=== PATIENT | female | born 1960 | race Caucasian/White ===

== ENCOUNTER → 2021-11-06 11:59 | Outpatient (CLI) | payer BC, SELFPAY ==
--- NOTE | 2021-11-06 12:10 | XR_ITS ---
PROCEDURE: XR CHEST 2V CLINICAL HISTORY: DECREASED BREATH SOUNDS IN MIDDLE FIELD, ON RT SIDE OF CHEST COMPARISON: No exams were available for comparison FINDINGS: The cardiomediastinal silhouette and pulmonary vascularity are within normal limits. The lungs are clear without infiltrates, suspicious nodules, or pleural effusions. Left IJ MediPort catheter is present with the tip in the region the SVC. Status post bilateral mastectomy. IMPRESSION: No acute findings. 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 Dictated by: Ritchie Jones MD 11/06/2021 17:10 Ritchie Jones MD in [place] 11/06/2021 17:10
--- NOTE | 2021-11-06 12:31 | ECG_ITS ---
APPROVED REPORT Exam: Resting ECG HR:60 bpm ECG Measurements Heart Rate 60 AXES NH 158 P 39 QRSd 88 QRS 13 QT 420 T 31 QTc 420 Conclusion Normal sinus rhythm RSR' or QR pattern in V1 suggests right ventricular conduction delay Moderate voltage criteria for LVH, may be normal variant Borderline ECG Electronically signed by : Ramone Nash MD 11/06/2021 20:58:30
[2021-11-06 12:32] LABS: Basophils # 0.1 K/mm3 (0-0.2); Basophils % 0.6 % (0.1-2.0); Eosinophils # 0.2 K/mm3 (0.0-0.4); Eosinophils % 1.6 % (0.1-12.0); Lymphocytes # 1.7 K/mm3 (0.7-4.5); Lymphocytes % 17.6 % (10-50); Mean Corpuscular Volume 85.3 fl (81-99); Mean Platelet Volume 7.3 fl (7.4-10.4); Monocytes # 0.5 K/mm3 (0.1-1.0); Monocytes % 5.3 % (1.7-9.3); Neutrophils % 74.9 % (37.0-80.0); Platelet Count 324 K/mm3 (142-424); Red Blood Count 5.51 M/mm3 (4.20-5.40); Red Cell Distribution Width 14.1 % (11.5-17.5); White Blood Count 9.4 K/mm3 (4.8-10.8)
[2021-11-06 13:12] LABS: Chloride 102 mmol/L (98-107); Potassium 4.3 mmoL/L (3.5-5.1); Sodium 140 mmol/L (136-145)
[2021-11-06 13:15] LABS: Alanine Aminotransferase 26 U/L (12-78); Albumin Level 4.5 g/dl (3.5-5.0); Albumin/Globulin Ratio 1.7 (1.1-1.8); Alkaline Phosphatase 99 U/L (38-126); Anion Gap 12.3 mEq/L (5-15); Aspartate Amino Transferase 27 U/L (14-36); Bilirubin,Total 0.5 mg/dl (0.2-1.3); Blood Urea Nitrogen 10 mg/dl (7-17); Calcium 9.5 mg/dl (8.4-10.2); Carbon Dioxide 30 mmol/L (22.0-30.0); Estimated Glomerular Filt Rate 126 ml/min (>60); GFR (African American) 153 ML/MIN (>60); Globulin 2.6 g/dL (1.3-3.2); Glucose 100 mg/dl (74-100); Total Protein,Serum 7.1 g/dl (6.3-8.2)
[2021-11-06 13:24] LABS: NT Pro Brain Natriuretic Pep. 181 pg/mL (0-125)
== END ==
PROVIDERS: Visit Provider Nurse Practitioner
DX: R06.89 Other abnormalities of breathing (principal); I10 Essential (primary) hypertension
CPT/HCPCS: 36415; 71046; 80053; 83880; 84443; 85025; 93005

== ENCOUNTER 2024-10-19 14:30 | Emergency (ER) | payer BC, SELFPAY ==
--- NOTE | 2024-10-19 14:41 | XR_ITS ---
PROCEDURE INFORMATION: Exam: XR Left Knee Exam date and time: 10/19/2024 2:52 PM Age: 63 years old Clinical indication: Injury or trauma; Fall; Blunt trauma; Knee; Left TECHNIQUE: Imaging protocol: Radiologic exam of the left knee. Views: 3 views. Total images: 3 COMPARISON: CR XR KNEE LT 3V 10/19/2024 2:52 PM FINDINGS: Bones/joints: There are mild degenerative changes of the knee joint, predominantly involving the medial joint compartment. Chondrocalcinosis is present. No evidence of acute fracture or dislocation. Soft tissues: Soft tissues are within normal limits. IMPRESSION: 1. There are mild degenerative changes of the knee joint, predominantly involving the medial joint compartment. 2. No evidence of acute fracture or dislocation.
--- NOTE | 2024-10-19 14:42 | XR_ITS ---
PROCEDURE INFORMATION: Exam: XR Left Foot Exam date and time: 10/19/2024 2:53 PM Age: 63 years old Clinical indication: Injury or trauma; Fall; Blunt trauma; Foot; Left TECHNIQUE: Imaging protocol: Radiologic exam of the left foot. Views: 3 or more views. Total images: 3 COMPARISON: CR XR KNEE LT 3V 10/19/2024 2:52 PM FINDINGS: Bones/joints: Fracture of the proximal aspect of the proximal phalanx of the great toe extending to the metatarsophalangeal joint. Degenerative changes of the interphalangeal joints. Calcaneal spurs are present. No evidence of acute dislocation. Soft tissues: Diffuse soft tissue swelling. IMPRESSION: 1. Fracture of the proximal aspect of the proximal phalanx of the great toe extending to the metatarsophalangeal joint. 2. Degenerative changes of the interphalangeal joints. 3. No evidence of acute dislocation. 4. Diffuse soft tissue swelling.
[2024-10-19 15:36] VITALS: BP 130/71; PULSE 68; RESP 19; TEMP 36.7; O2SAT 97; BMI 35.4
--- NOTE | 2024-10-19 15:55 | ED_ITS ---
Discharge Plan Disposition Patient Disposition: Home, Self-Care Condition: Good Prescriptions Prescriptions: New bacitracin 500 unit/gram ointment 1 applic topical TID Qty: 28 0RF Rx Instructions: apply to abrasion on knee as directed No Action clonidine HCl 0.1 mg tablet 0.1 mg PO DAILY atorvastatin 20 mg tablet 20 mg PO DAILY pramipexole 0.5 mg tablet 0.5 mg PO DAILY citalopram 20 mg tablet 20 mg PO DAILY furosemide 20 mg tablet 20 mg PO DIRECTED Patient Comments: TAKE 1 TABLET BY MOUTH DAILY WEIGHT NEEDED FOR SWELLING OR PAIN duloxetine 60 mg capsule,delayed release(DR/EC) 60 mg PO DAILY nebivolol 20 mg tablet 20 mg PO DAILY Humira(CF) Pen 40 mg/0.4 mL pen injector kit 40 mg SQ DIRECTED Referrals Follow up/Referrals: Provider,Referral, MD [Primary Care Provider] - See instructions Activity Restrictions/Add. Instructions Additional Instructions/Restrictions: *weight bearing as tolerated *RICE, Rest the extremity, Ice 15-20 minutes 3-4 times daily, Compress- wear the gunnar wrap as discussed as much as possible to help reduce swelling and pain, Elevate the extremity when at rest *Walking boot is for support and help control swelling, use it except in the shower. Be sure that is not to tight but not to loose either *Elevate when resting? *Ibuprofen 600-800mg every 6-8 hours as needed for pain an inflammation. If need something more can take Tylenol in between doses of Ibuprofen to help Immediately follow up with your family doctor for new or worsening of symptoms, or no noticeable improvement over the next 3-5 days Clinical Impressions Clinical Impression: Fracture, phalanx, foot Qualifiers: Encounter type: initial encounter Toe: great toe Fracture type: closed Phalanx: proximal Fracture alignment: nondisplaced Laterality: left Qualified Code(s): S 92.415A - Nondisplaced fracture of proximal phalanx of left great toe, initial encounter for closed fracture Instructions Patient Instructions: Toe Fracture, DI for Toe Fracture, How To Perform RICE (Rest, Ice, Compress, Elevate), How to Use a Walking Boot Print Language Print Language: Frisian Discharge ED Provider: Lisa Garcia [facility] [place] General Stated complaint: ao fall L foot pain/knee Mode of Arrival: Ambulatory Source of Information: Patient Time Seen by Provider: 10/19/24 15:55 Description of Symptoms (Recalled from Triage Doc. by RN): FELL 2 DAYS AGO, TOP OF FOOT AND KNEE PAIN HEENT Symptoms (Recalled from RN notes): No Resp Symptoms (Recalled from RN notes): No Skin Symptoms (Recalled from RN notes): No MS Symptoms (Recalled from RN notes): Yes Functional Status (Recalled from RN notes): WNL History of Present Illness Provider Complaint: Patient states that she stepped on something wet in the floor a couple days ago and slipped and fell and hurt her left great toe/foot and her knee States that she thought it would be ok but has continued to have pain so she came in Related Data Home Medications ?Medication ?Instructions ?Recorded ?Confirmed adalimumab 40 mg/0.4 mL 40 mg SQ DIRECTED 10/19/24 10/19/24 subcutaneous pen kit (Humira(CF) Pen) atorvastatin 20 mg tablet 20 mg PO DAILY 10/19/24 10/19/24 citalopram 20 mg tablet 20 mg PO DAILY 10/19/24 10/19/24 clonidine HCl 0.1 mg tablet 0.1 mg PO DAILY 10/19/24 10/19/24 duloxetine 60 mg capsule,delayed 60 mg PO DAILY 10/19/24 10/19/24 release furosemide 20 mg tablet 20 mg PO DIRECTED 10/19/24 10/19/24 nebivolol 20 mg tablet 20 mg PO DAILY 10/19/24 10/19/24 pramipexole 0.5 mg tablet 0.5 mg PO DAILY 10/19/24 10/19/24 Previous Rx's ?Medication ?Instructions ?Recorded bacitracin 500 unit/gram topical 1 applic topical TID #28 grams 10/19/24 ointment Allergies Allergy/AdvReac Type Severity Reaction Status Date / Time morphine Allergy Other Verified 10/19/24 15:39 codeine AdvReac Other Verified 10/19/24 15:39 Worker's Comp Is this a Worker's Comp case?: No [facility] Disclaimer: The information contained in this section may have been updated after the patient was seen, as this information can be updated by other users. Social History Smoking Status: Unknown if ever smoked alcohol intake: never current occupational status: employed Travel in the last 8 weeks: None ROS Obtained: Yes All systems reviewed & no additional complaints except as documented and Yes Systems reviewed as appropriate & no additional complaints except as documented Constitutional Constitutional: Reports system reviewed and no additional complaints, except as documented and Reports as per HPI Cardiovascular Cardiovascular: Reports system reviewed and no additional complaints, except as documented and Reports as per HPI Respiratory Respiratory: Reports system reviewed and no additional complaints, except as documented and Reports as per HPI Gastrointestinal Gastrointestingal: Reports system reviewed and no additional complaints, except as documented and as per HPI Musculoskeletal Musculoskeletal: Reports system reviewed and no additional complaints, except as documented, Reports as per HPI and Reports other Comments: pain and swelling in left foot and pain and abrasion to left knee Physical Exam General General appearance: alert and in no apparent distress Respiratory Respiratory exam: Present normal lung sounds bilaterally; Absent respiratory distress or wheezes Cardiovascular Cardiovascular exam: Present regular rate, normal rhythm and normal heart sounds Expanded Lower Extremity Exam Left: Leg image: 2 1. abrasion noted Knee exam: Present tenderness, swelling and abrasion Foot/toe exam: Present tenderness and swelling Top foot image: 2 1. swelling and bruising noted Gait: observed and limited by pain Neurological Exam Neurological exam: Present alert, oriented X3 and normal gait Medical Decision Making Medical Records Screening: Per USPSTF and CDC recommendations, given the prevalence of disease in our region, it is our hospital?s policy to screen for HIV and viral Hepatitis for all patients aged 18 and over and those with ongoing risk factors. Jay Inquiry Pt receiving controlled substance: No Jay was queried for this patient: No Vital Signs: 10/19/24 15:36 Temperature 98.1 F Temperature Source Oral Pulse Rate [Left Radial] 68 Respiratory Rate 19 Blood Pressure [Left Arm] 130/71 Blood Pressure Mean [Left Arm] 90 02 Sat by Pulse Oximetry 97 Orders (Tests/Meds): ORDERS Category Date Time Status XR foot LT min 3V Stat Exams 10/19/24 14:42 Completed XR knee LT 3V Stat Exams 10/19/24 14:41 Completed Radiology Data #1: Image(s): Knee Image Reviewed: Yes I have reviewed radiologist's interpretation IMPRESSION: 1. There are mild degenerative changes of the knee joint, predominantly involving the medial joint compartment. 2. No evidence of acute fracture or dislocation. #2: Image(s): Foot/Toes Image Reviewed: Yes I have reviewed radiologist's interpretation IMPRESSION: 1. Fracture of the proximal aspect of the proximal phalanx of the great toe extending to the metatarsophalangeal joint. 2. Degenerative changes of the interphalangeal joints. 3. No evidence of acute dislocation. 4. Diffuse soft tissue swelling. Procedures Orthopedic Splinting/Casting Injury #1: Side: left Lower Extremity Immobilizer: boot orthosis Additional Comments: jai declined crutches Post Cast/Splinting Neuro Status: intact and no change Post Cast/Splinting Vasc Status: intact and no change
[2024-10-19 16:38] VITALS: BP 130/71; PULSE 68; RESP 19; TEMP 36.7
== END 2024-10-19 16:39 | disposition home or self-care (01) ==
PROVIDERS: Emergency Provider Nurse Practitioner
DX: S92.415A Nondisplaced fracture of proximal phalanx of left great toe, initial encounter for closed fracture (principal); M25.562 Pain in left knee; M79.672 Pain in left foot; W01.0XXA Fall on same level from slipping, tripping and stumbling without subsequent striking against object, initial encounter; Y93.9 Activity, unspecified; Y92.9 Unspecified place or not applicable
CPT/HCPCS: 73562; 73630; 99212; G0381